=== PATIENT | male | born 1995 ===

== ENCOUNTER 2019-02-06 15:53 | Emergency (ER) | payer SELFPAY ==
--- NOTE | 2019-02-06 16:07 | UC ---
Eye Complaint HPI - HPI Summary HPI Summary: 23 yo male presents with RIGHT eye redness and drainage since saturday. He tells me that he woke up and noticed some itchy to his right eye. As the day progressed he developed redness and clear/yellow drainage. On saturday his symptoms persisted and his girlfriend said he had "pink eye" and gave him an old prescription she had of cipro eye drops. He has been using these 2 drops a few times a day - sometimes 2 times sometimes 3 times. Since that time his symptoms have improved slightly, but is still present. Denies injury, FB in eye , fever, chills, sinus symptoms, sore throat, cough, rash, vision changes. - History of Current Complaint Stated Complaint: EYE COMPLAINT Time Seen by Provider: 02/06/19 16:06 Hx Obtained From: Patient Onset/Duration: Sudden Onset Severity Initially: Mild Severity Currently: Mild Pain Intensity: 3 Pain Scale Used: 0-10 Numeric - Allergies/Home Medications Allergies/Adverse Reactions: Allergies Allergy/AdvReac Type Severity Reaction Status Date / Time No Known Allergies Allergy Verified 02/06/19 16:04 Home Medications: Home Medications Ciprofloxacin 0.3% OPTH.NINOSKA* [Cipro 0.3% Opth*] 2 drop RIGHT EYE TID 02/06/19 [ History Confirmed 02/06/19] PMH/Surg Hx/FS Hx/Imm Hx - Additional Past Medical History Additional PMH: None - Surgical History Surgical History: None - Family History Known Family History: Positive: Non-Contributory - Social History Lives: With Family Alcohol Use: Rare Substance Use Type: Marijuana Smoking Status (MU): Never Smoked Tobacco Review of Systems All Other Systems Reviewed And Are Negative: Yes Constitutional: Positive: Negative Skin: Positive: Negative Eyes: Positive: Drainage, Eye Redness ENT: Positive: Negative Respiratory: Positive: Negative Cardiovascular: Positive: Negative Gastrointestinal: Positive: Negative Neurovascular: Positive: Negative Neurological: Positive: Negative Psychological: Positive: Negative Physical Exam - Summary Physical Exam Summary: GENERAL: WDWN. No pain distress. SKIN: No rashes, sores, lesions, or open wounds. HEENT: Head: AT/NC Eyes: EOM intact. PERRLA. RIGHT EYE: Moderate scleral injection. Conjunctiva with moderate erythema and inflammation. Mild yellow discharge. RIGHT EYE: Conjunctiva clear without inflammation or discharge. No FBs appreciated Nose: NTTP maxillary and frontal sinus. NECK: Supple. Nontender. No lymphadenopathy. CHEST: No accessory muscle use. Breathing comfortably and in no distress. CV: Pulses intact. Cap refill <2seconds NEURO: Alert. PSYCH: Age appropriate behavior. Triage Information Reviewed: Yes Vital Signs: Vital Signs: Temp Pulse Resp BP Pulse Ox 98.7 F 100 18 153/89 100 02/06/19 15:59 02/06/19 15:59 02/06/19 15:59 02/06/19 15:59 02/06/19 15:59 Vital Signs Reviewed: Yes Eye Complaint Course/Dx - Course Course Of Treatment: Conjunctivitis. He does not wear contacts. Suspect his symptoms are not resolving due to improper dosing of old anbx. Will treat him with polytrim and have him f/u with Dr. Musa is symptoms do not improve by saturday. - Differential Dx/Diagnosis Provider Diagnosis: Right conjunctivitis Discharge - Sign-Out/Discharge Documenting (check all that apply): Patient Departure All imaging exams completed and their final reports reviewed: No Studies - Discharge Plan Condition: Stable Disposition: HOME Prescriptions: Polymyx/Trimethoprim OPTH* [Polytrim OPHTH*] 1 drop RIGHT EYE Q4H #1 btl Patient Education Materials: Conjunctivitis (ED) Forms: *Work Release Referrals: No Primary Care Phys,NOPCP [Primary Care Provider] - Moisés Musa MD [Medical Doctor] - If Needed Additional Instructions: If you develop a fever, shortness of breath, chest pain, new or worsening symptoms - please call your PCP or go to the ED immediately. Your blood pressure was high at todays visit. Please see your primary provider within 4 weeks for recheck and re-evaluation. Stop using the Cipro eye drops and start the new eye drops. If your eye has not improved by Saturday - please call the Eye Doctor (Dr. Musa) at the number below to schedule an appointment for Saturday for a recheck - Billing Disposition and Condition Condition: STABLE Disposition: Home
[2019-02-06 16:10] VITALS: BP 153/89
== END 2019-02-06 16:34 | disposition home or self-care (01) ==
LOC: UCEAST 15:53
DX: H10.9 Unspecified conjunctivitis (principal)
CPT/HCPCS: 99211; G0463